=== PATIENT | female | born 2000 | race Caucasian/White ===

== ENCOUNTER 2022-12-11 11:06 | Outpatient (CLI) | payer OTHER | END 2022-12-11 14:30 | disposition home or self-care (01) | LOC: LAB 11:06 | PROVIDERS: ATTEND General Practice | DX: J02.9 Acute pharyngitis, unspecified (principal); Z11.1 Encounter for screening for respiratory tuberculosis; Z11.3 Encounter for screening for infections with a predominantly sexual mode of transmission; Z11.4 Encounter for screening for human immunodeficiency virus [HIV]; Z12.11 Encounter for screening for malignant neoplasm of colon; Z12.4 Encounter for screening for malignant neoplasm of cervix; Z13.0 Encounter for screening for diseases of the blood and blood-forming organs and certain disorders involving the immune mechanism; Z13.220 Encounter for screening for lipoid disorders; Z13.1 Encounter for screening for diabetes mellitus; Z13.228 Encounter for screening for other metabolic disorders; Z13.29 Encounter for screening for other suspected endocrine disorder; E78.2 Mixed hyperlipidemia; R73.09 Other abnormal glucose; N39.0 Urinary tract infection, site not specified ==

== ENCOUNTER 2023-05-18 09:20 | Outpatient (CLI) | payer OTHER | END 2023-05-18 09:31 | disposition home or self-care (01) | LOC: RAD 09:20 | PROVIDERS: ATTEND General Practice | DX: R05.9 Cough, unspecified (principal); R06.02 Shortness of breath; Z87.09 Personal history of other diseases of the respiratory system; R51.9 Headache, unspecified ==